=== PATIENT | male | born 1970 ===

== ENCOUNTER 2018-07-18 10:29 | Emergency (ER) | payer OTHER ==
[~2018-07-18] VITALS: Ht 170.2 cm; Wt 77.1 kg
== END 2018-07-18 11:46 | disposition home or self-care (01) ==
LOC: ER 10:29
DX: S61.411A Laceration without foreign body of right hand, initial encounter (principal); W45.8XXA Other foreign body or object entering through skin, initial encounter; Y93.89 Activity, other specified; Y92.89 Other specified places as the place of occurrence of the external cause; Y99.8 Other external cause status